=== PATIENT | female | born 2000 ===

== ENCOUNTER 2023-05-03 04:13 | Emergency (ER) | payer SELFPAY ==
[2023-05-03] MEDS ORDERED: Haloperidol Lactate 5 MG/ML SDV IM ONE (04:19)
[2023-05-03] MEDS ORDERED: LORazepam 2 MG/ML SDV IM ONE ×2 (04:19→06:18)
[2023-05-03 06:26] LABS: AMPHETAMINES SCREEN, URINE NEGATIVE (CUTOFF=500); BARBITURATE SCREEN,URINE NEGATIVE (CUTOFF=200); BENZODIAZEPINES SCREEN,URINE NEGATIVE (CUTOFF=150); BUPRENORPHINE SCREEN,URINE NEGATIVE (CUTOFF=10); METHADONE SCREEN, URINE NEGATIVE (CUTOFF=200); METHAMPHETAMINES SCREEN, URINE NEGATIVE (CUTOFF=500); OXYCODONE SCREEN,URINE NEGATIVE (CUT0FF=100); PCP SCREEN,URINE NEGATIVE (CUTOFF=25); PROPOXYPHENE SCREEN,URINE NEGATIVE (CUTOFF=300); THC SCREEN,URINE 20 NG/ML PRESUMPTIVE POSITIVE (CUTOFF=50)
== END 2023-05-03 08:54 | disposition home or self-care (01) ==
LOC: MW.ED 04:13
DX: S00.83XA Contusion of other part of head, initial encounter (principal); Y09 Assault by unspecified means
CPT/HCPCS: 36415; 70450; 70486; 71045; 72125; 80305; 80307; 84703; 96372; 99284; J1630; J2060; 99283